=== PATIENT | male | born 1955 | race Caucasian/White ===

== ENCOUNTER → 2017-08-05 | Outpatient (REF) | payer BC | LOC: M SFHCLERA 18:21 | DX: J02.9 Acute pharyngitis, unspecified (principal) ==

== ENCOUNTER → 2017-08-05 | Outpatient (CLI) | payer BC | LOC: M LRY 17:58 | DX: R05 Cough (principal) ==

== ENCOUNTER → 2021-06-11 | Outpatient (CLI) | payer BC, MEDICARE ==
[~2021-06-11] MED LIST: AZELASTINE HCL; CYMB1CAP5 OR; FLOM0.4C39 OR; HYDR-3713 PO; LISI-898 PO; LISI5TAB OR; PENNSAID DROPS TOP; TADA5TAB PO; TAMS1CAP17 PO; VICO5TAB PO; VOLT1GEL EX
[2021-06-11 14:40] LABS: BLOOD UREA NITROGEN 15 MG/DL (7-18); CARBON DIOXIDE LEVEL 27 MEQ/L (21-32); CHLORIDE LEVEL 107 MEQ/L (98-107); CREATININE FOR GFR 0.84 MG/DL (0.70-1.30); GLOMERULAR FILTRATION RATE > 60.0 (>49); GLUCOSE, FASTING 82 MG/DL (70-100); POTASSIUM SERUM 4.2 MEQ/L (3.5-5.1); SODIUM LEVEL 139 MEQ/L (136-145)
--- NOTE | 2021-06-12 19:36 | ECGEPIP ---
[facility] Test Date: 2021-06-11 Pat Name: DANK CASTILLO Department: Room: - Gender: Male Splitter Head: TADEO : 1955 Requested By: Alex Cruz Order Number: [id number] Reading MD: Gold Hernandez Measurements Intervals [place] Rate: 70 P: 49 TX: 136 QRS: -28 QRSD: 92 T: 30 QT: 364 QTc: 393 Interpretive Statements Normal sinus rhythm with sinus arrhythmia Inferior infarct , age undetermined, cannot r/o No prior Electronically Signed on 06-12-2021 19:36:07 EST by Gold Hernandez
== END ==
LOC: M LAB 12:52
PROVIDERS: ATTEND Anesthesiology
DX: Z01.818 Encounter for other preprocedural examination (principal); R03.0 Elevated blood-pressure reading, without diagnosis of hypertension

== ENCOUNTER → 2021-06-12 | Outpatient (CLI) | payer BC | LOC: M LABSMTC 10:49 | PROVIDERS: ATTEND Anesthesiology | DX: Z01.812 Encounter for preprocedural laboratory examination (principal); Z20.822 Contact with and (suspected) exposure to COVID-19 ==

== ENCOUNTER 2021-06-17 09:36 | Day surgery (SDC) | payer BC, MEDICARE ==
[~2021-06-17] VITALS: Ht 175.3 cm; Wt 93.8 kg
[~2021-06-17 09:36] MED LIST changes: -LISI-898 PO; +LISI5TAB11 PO; +LR 1,000 ML IV ONE; +ceFAZolin SOD 2 GM in IV 1 EA IV ONE
[2021-06-17] MEDS ORDERED: LIDOCAINE 2% 100MG/5ML SDV (FOR ANES.) As Ordered ONE (09:57)
[2021-06-17] MEDS ORDERED: ONDANSETRON 4MG/2ML VIAL As Ordered ONE (09:57)
[2021-06-17] MEDS ORDERED: MIDAZOLAM INJ 2MG/2ML VIAL (J2250 PER 1MG) As Ordered ONE (09:57)
[2021-06-17] MEDS ORDERED: dexameTHASONE 4 MG/ML 1ML VIAL (J1100 PER 1MG) As Ordered ONE (09:57)
[2021-06-17] MEDS ORDERED: fentaNYL 250 MCG/5 ML INJECTION As Ordered ONE (09:57)
[2021-06-17] MEDS ORDERED: propofoL 200 MG/20 ML VIAL As Ordered ONE (09:57)
[2021-06-17] MEDS ORDERED: KETOROLAC 60MG 2ML VIAL As Ordered ONE (09:57)
[2021-06-17] MEDS ORDERED: ROCURONIUM BROMIDE 50 MG/5 ML VIAL As Ordered ONE ×2 (09:58→11:22)
[2021-06-17] MEDS ORDERED: BUPIVACAINE/EPIN 0.25% 30 ML VIAL As Ordered ONE (10:40)
[2021-06-17] MEDS ORDERED: ACETAMINOPHEN 1000MG 100ML IV BTL (OFIRMEV) (J0131 PER 10MG) As Ordered ONE (11:14)
[2021-06-17] MEDS ORDERED: ePHEDrine SULFATE 25 MG/5 ML(5MG/ML) SYRINGE As Ordered ONE (11:17)
[2021-06-17] MEDS ORDERED: SUGAMMADEX SODIUM 500 MG/5 ML VIAL (BRIDION) As Ordered ONE (11:22)
[2021-06-17] MEDS ORDERED: LABETALOL 100MG/20ML VIAL As Ordered ONE (11:38)
[2021-06-17] MEDS ORDERED: fentaNYL 100 MCG/2 ML INJECTION IV PRN (13:10)
[2021-06-17] MEDS ORDERED: PERCOCET 5MG/325MG TAB PO PRN (13:10)
[2021-06-17] MEDS ORDERED: NS 1,000 ML IV SCH (13:10)
[2021-06-17] MEDS ORDERED: NORCO, ANEXSIA 5/325MG TABLET (HYDROcodone/ACETAMINOPHEN) PO PRN ×2 (13:10)
[2021-06-17] MEDS ORDERED: METOCLOPRAMIDE INJ 10MG/2ML VIAL (J2765 PER 1) IV PRN (13:10)
[2021-06-17] MEDS ORDERED: ONDANSETRON 4MG/2ML VIAL IV PRN (13:10)
[2021-06-17] MEDS ORDERED: LR 1,000 ML IV SCH (13:10)
[2021-06-17 14:15] VITALS: BP 149/72
== END 2021-06-17 14:20 | disposition home or self-care (01) ==
LOC: M SDC 09:36
PROVIDERS: ATTEND Surgery
DX: K50.90 Crohn's disease, unspecified, without complications (principal); I10 Essential (primary) hypertension; Z79.899 Other long term (current) drug therapy
CPT/HCPCS: 49650; C1781; J0131; J0690; J1100; J2250; J2405; J3010; S2900

== ENCOUNTER 2022-04-03 20:11 | Inpatient (IN) | payer BC, MEDICARE ==
[~2022-04-03] VITALS: Ht 175.3 cm; Wt 98.7 kg
[~2022-04-03 20:11] MED LIST changes: -LR 1,000 ML IV ONE; -ceFAZolin SOD 2 GM in IV 1 EA IV ONE
[2022-04-03] MEDS ORDERED: ONDANSETRON 4MG 2ML VIAL IV ONE (21:05)
[2022-04-03] MEDS ORDERED: MORPHINE 4 MG/ML 1ML VIAL/SYRINGE IV ONE (21:05)
[2022-04-03] MEDS ORDERED: ISOVUE-370 76% 100ML VIAL As Ordered ONE (21:38)
[2022-04-03 21:39] LABS: BASO % 0.2 % (0.0-1.0); EOS % 0.4 % (0.0-3.0); HEMATOCRIT 46.5 % (42.0-52.0); HEMOGLOBIN 15.6 g/dl (13.5-17.5); LYMPH # 0.9 10^3/uL (1.5-5.0); LYMPH % 17.8 % (24.0-44.0); MEAN CORPUSCULAR HEMOGLOBIN 31.8 pg (27.0-33.0); MEAN CORPUSCULAR HGB CONC 33.5 g/dl (32.0-36.5); MEAN CORPUSCULAR VOLUME 94.7 fl (80.0-96.0); MONO # 0.2 10^3/uL (0.0-0.8); MONO % 3.4 % (2.0-8.0); NEUTROPHILS # 3.9 10^3/uL (1.5-8.5); PLATELET COUNT, AUTOMATED 266 10^3/uL (150-450); RED BLOOD COUNT 4.91 10^6/uL (4.30-6.10)
[2022-04-03 21:55] LABS: INR 0.91; PROTHROMBIN TIME 12.4 SECONDS (12.5-14.5)
[2022-04-03 21:56] LABS: ALBUMIN 4.3 GM/DL (3.2-5.2); BILIRUBIN,DIRECT 0.1 MG/DL (0.0-0.2); BILIRUBIN,TOTAL 0.4 MG/DL (0.2-1.0); TOTAL PROTEIN 7.4 GM/DL (6.4-8.2)
[2022-04-03] MEDS ORDERED: NS 2,730 ML in IV 1 EA IV ONE (22:05)
[2022-04-03] MEDS ORDERED: HYDROMORPHONE HCL 0.5 MG/ 0.5 ML SYRINGE (J1170 PER 1) IV ONE (22:10)
[2022-04-03] MEDS ORDERED: HYDR-4571 PO (22:13)
[2022-04-03] MEDS ORDERED: HOME MED LIST COMPLETE! XX SCH (22:15)
[2022-04-03] MEDS ORDERED: PIPERACILLIN/TAZOBACTAM SOD 3.375 GM in D5W MINI-BAG PLUS 50 ML IV ONE (22:25)
[2022-04-03 23:06] LABS: RSV AMPLIFICATION NEGATIVE (NEGATIVE)
[2022-04-04] VITALS (13 sets, daily range): BP systolic 113–131; BP diastolic 68–76; O2SAT 90–95
[2022-04-04] MEDS ORDERED: BUPIVACAINE LIPOSOME/PF 1.3% 20ML VIAL (13.3MG/ML)(EXPAREL) As Ordered ONE (01:19)
[2022-04-04] MEDS ORDERED: BUPIVACAINE HCL 0.25% 10ML VIAL As Ordered ONE (01:19)
[2022-04-04] MEDS ORDERED: propofoL 200 MG/20 ML VIAL As Ordered ONE (01:32)
[2022-04-04] MEDS ORDERED: SUCCINYLCHOLINE 100 MG/5 ML SYRINGE (J0330) As Ordered ONE (01:32)
[2022-04-04] MEDS ORDERED: ONDANSETRON 4MG 2ML VIAL As Ordered ONE (01:32)
[2022-04-04] MEDS ORDERED: fentaNYL 100 MCG/2 ML INJECTION As Ordered ONE (01:32)
[2022-04-04] MEDS ORDERED: LIDOCAINE 2% 100MG/5ML SDV (FOR ANES.) As Ordered ONE (01:32)
[2022-04-04] MEDS ORDERED: dexameTHASONE 4 MG/ML 1ML VIAL (J1100 PER 1MG) As Ordered ONE (01:32)
[2022-04-04] MEDS ORDERED: ROCURONIUM BROMIDE 50 MG/5 ML VIAL As Ordered ONE (01:32)
[2022-04-04] MEDS ORDERED: HYDROmorphone HCL 2MG/ML 1ML VIAL As Ordered ONE (01:32)
[2022-04-04] MEDS ORDERED: MIDAZOLAM INJ 2MG/2ML VIAL (J2250 PER 1MG) As Ordered ONE (01:32)
[2022-04-04] MEDS ORDERED: LABETALOL 100MG/20ML VIAL As Ordered ONE (01:32)
[2022-04-04] MEDS ORDERED: LIDOCAINE 2% JELLY 5ML TUBE As Ordered ONE (01:32)
[2022-04-04] MEDS ORDERED: ACETAMINOPHEN 1000MG 100ML IV BTL (OFIRMEV) (J0131 PER 10MG) As Ordered ONE (01:32)
[2022-04-04] MEDS ORDERED: SUGAMMADEX SODIUM 500 MG/5 ML VIAL (BRIDION) As Ordered ONE (01:32)
[2022-04-04] MEDS ORDERED: HYDROMORPHONE HCL 0.5 MG/ 0.5 ML SYRINGE (J1170 PER 1) IV PRN (01:35)
[2022-04-04] MEDS ORDERED: MORPHINE 2 MG/ML 1ML VIAL IV PRN (01:35)
[2022-04-04] MEDS ORDERED: oxyCODONE 5MG TAB PO PRN (01:35)
[2022-04-04] MEDS ORDERED: LR 1,000 ML IV SCH (01:35)
[2022-04-04] MEDS ORDERED: IPRATROPIUM 0.5MG/ALBUTEROL 2.5MG INH SOL UD 3ML (DUONEB) NEB PRN (01:35)
[2022-04-04] MEDS ORDERED: MORPHINE 4 MG/ML 1ML VIAL/SYRINGE IV PRN (01:35)
[2022-04-04] MEDS ORDERED: ONDANSETRON 4MG 2ML VIAL IV PRN ×2 (01:35)
[2022-04-04] MEDS ORDERED: fentaNYL 100 MCG/2 ML INJECTION IV PRN (01:35)
[2022-04-04] MEDS ORDERED: KETOROLAC 60MG 2ML VIAL As Ordered ONE (01:53)
[2022-04-04] MEDS: IPRATROPIUM 0.5MG/ALBUTEROL 2.5MG INH SOL UD 3ML (DUONEB) NEB SCH ×4 (02:00→20:00)
[2022-04-04] MEDS ORDERED: KETOROLAC 30 MG/ML 1ML VIAL IV SCH (02:00)
[2022-04-04] MEDS: NS 1,000 ML IV SCH ×4 (03:36→23:39)
[2022-04-04] MEDS: PIPERACILLIN/TAZOBACTAM SOD 3.375 GM in D5W MINI-BAG PLUS 50 ML IV SCH ×4 (04:06→22:08)
[2022-04-04] MEDS: PANTOPRAZOLE 40MG VIAL IV SCH (09:35)
[2022-04-04] MEDS: ALVIMOPAN 12 MG CAPSULE (ENTEREG) PO SCH ×2 (09:35→20:18)
[2022-04-04] MEDS: KETOROLAC 30 MG/ML 1ML VIAL IV SCH ×3 (09:35→20:21)
[2022-04-04] MEDS: TAMSULOSIN 0.4 MG CAP PO SCH (20:17)
[2022-04-04] MEDS: lisinopriL 5 MG TAB PO SCH (20:18)
[2022-04-05] MEDS: KETOROLAC 30 MG/ML 1ML VIAL IV SCH ×4 (01:29→20:16)
[2022-04-05] MEDS: IPRATROPIUM 0.5MG/ALBUTEROL 2.5MG INH SOL UD 3ML (DUONEB) NEB SCH ×4 (01:35→20:08)
[2022-04-05] MEDS: PIPERACILLIN/TAZOBACTAM SOD 3.375 GM in D5W MINI-BAG PLUS 50 ML IV SCH ×4 (04:03→23:13)
[2022-04-05 04:20] VITALS: BP 123/69
[2022-04-05 05:50] LABS: HEMATOCRIT 35.7 % (42.0-52.0); MEAN CORPUSCULAR HEMOGLOBIN 31.2 pg (27.0-33.0); MEAN CORPUSCULAR HGB CONC 32.8 g/dl (32.0-36.5); MEAN CORPUSCULAR VOLUME 95.2 fl (80.0-96.0); PLATELET COUNT, AUTOMATED 146 10^3/uL (150-450); RED BLOOD COUNT 3.75 10^6/uL (4.30-6.10); WHITE BLOOD COUNT 8.9 10^3/uL (4.0-10.0)
[2022-04-05 05:51] LABS: HEMOGLOBIN 11.7 g/dl (13.5-17.5)
[2022-04-05 06:26] LABS: BLOOD UREA NITROGEN 15 MG/DL (7-18); CALCIUM LEVEL 7.7 MG/DL (8.8-10.2); CARBON DIOXIDE LEVEL 25 MEQ/L (21-32); CHLORIDE LEVEL 110 MEQ/L (98-107); CREATININE FOR GFR 0.89 MG/DL (0.70-1.30); GLOMERULAR FILTRATION RATE > 60.0 (>49); GLUCOSE, FASTING 121 MG/DL (70-100); SODIUM LEVEL 140 MEQ/L (136-145)
[2022-04-05] MEDS: PANTOPRAZOLE 40MG VIAL IV SCH (08:26)
[2022-04-05] MEDS: ALVIMOPAN 12 MG CAPSULE (ENTEREG) PO SCH ×2 (08:27→20:16)
[2022-04-05] MEDS: NS 1,000 ML IV SCH ×2 (08:28→17:05)
[2022-04-05] MEDS ORDERED: FLUBLOK(EGG FREE)(QUAD)INFLUENZA VACC 0.5ML SYRINGE 18YRS & OLDER IM.IMMUN ONE (09:00)
[2022-04-05 10:00] VITALS: BP 130/79
[2022-04-05] MEDS: ENOXAPARIN 40MG/0.4ML SYRINGE (J1650 PER 10MG) SC SCH (12:03)
[2022-04-05 14:00] VITALS: BP 152/87
[2022-04-05] MEDS ORDERED: ACETAMINOPHEN TAB 650MG DOSE (2X325MG) PO PRN (15:50)
[2022-04-05 16:00] VITALS: BP 140/67
[2022-04-05 20:00] VITALS: BP 132/75
[2022-04-05] MEDS: lisinopriL 5 MG TAB PO SCH (20:18)
[2022-04-05] MEDS: TAMSULOSIN 0.4 MG CAP PO SCH (20:19)
[2022-04-06] MEDS: IPRATROPIUM 0.5MG/ALBUTEROL 2.5MG INH SOL UD 3ML (DUONEB) NEB SCH ×4 (02:00→19:22)
[2022-04-06] MEDS: NS 1,000 ML IV SCH ×3 (02:08→18:16)
[2022-04-06] MEDS: KETOROLAC 30 MG/ML 1ML VIAL IV SCH ×4 (02:08→20:57)
[2022-04-06] MEDS: PIPERACILLIN/TAZOBACTAM SOD 3.375 GM in D5W MINI-BAG PLUS 50 ML IV SCH ×4 (05:16→22:45)
[2022-04-06 06:00] VITALS: BP 130/75
[2022-04-06 06:04] LABS: HEMATOCRIT 32.8 % (42.0-52.0); HEMOGLOBIN 10.8 g/dl (13.5-17.5); MEAN CORPUSCULAR HEMOGLOBIN 31.6 pg (27.0-33.0); MEAN CORPUSCULAR HGB CONC 32.9 g/dl (32.0-36.5); MEAN CORPUSCULAR VOLUME 95.9 fl (80.0-96.0); PLATELET COUNT, AUTOMATED 141 10^3/uL (150-450); RED BLOOD COUNT 3.42 10^6/uL (4.30-6.10); WHITE BLOOD COUNT 8.2 10^3/uL (4.0-10.0)
[2022-04-06 06:31] LABS: BLOOD UREA NITROGEN 9 MG/DL (7-18); CALCIUM LEVEL 7.8 MG/DL (8.8-10.2); CARBON DIOXIDE LEVEL 24 MEQ/L (21-32); CHLORIDE LEVEL 114 MEQ/L (98-107); GLOMERULAR FILTRATION RATE > 60.0 (>49); GLUCOSE, FASTING 108 MG/DL (70-100); POTASSIUM SERUM 3.9 MEQ/L (3.5-5.1); SODIUM LEVEL 143 MEQ/L (136-145)
[2022-04-06] MEDS: ALVIMOPAN 12 MG CAPSULE (ENTEREG) PO SCH ×2 (09:44→20:56)
[2022-04-06] MEDS: ENOXAPARIN 40MG/0.4ML SYRINGE (J1650 PER 10MG) SC SCH (09:45)
[2022-04-06] MEDS: PANTOPRAZOLE 40MG VIAL IV SCH (09:45)
[2022-04-06 10:15] VITALS: BP 148/78
[2022-04-06] MEDS ORDERED: PERCOCET 5MG/325MG TAB PO PRN ×2 (13:45)
[2022-04-06 14:00] VITALS: BP 152/80
[2022-04-06] MEDS: TAMSULOSIN 0.4 MG CAP PO SCH (20:56)
[2022-04-06] MEDS: lisinopriL 5 MG TAB PO SCH (20:56)
[2022-04-06 21:10] VITALS: BP 167/95
[2022-04-06 22:47] VITALS: BP 154/85
[2022-04-07] VITALS (7 sets, daily range): BP systolic 169–179; BP diastolic 90–98
[2022-04-07] MEDS: NS 1,000 ML IV SCH (01:25)
[2022-04-07] MEDS: IPRATROPIUM 0.5MG/ALBUTEROL 2.5MG INH SOL UD 3ML (DUONEB) NEB SCH ×4 (01:54→19:54)
[2022-04-07] MEDS: KETOROLAC 30 MG/ML 1ML VIAL IV SCH ×4 (02:45→21:07)
[2022-04-07] MEDS: PIPERACILLIN/TAZOBACTAM SOD 3.375 GM in D5W MINI-BAG PLUS 50 ML IV SCH ×4 (04:12→23:22)
[2022-04-07 06:02] LABS: HEMATOCRIT 32.3 % (42.0-52.0); HEMOGLOBIN 10.6 g/dl (13.5-17.5); MEAN CORPUSCULAR HGB CONC 32.8 g/dl (32.0-36.5); MEAN CORPUSCULAR VOLUME 94.4 fl (80.0-96.0); PLATELET COUNT, AUTOMATED 164 10^3/uL (150-450); RED BLOOD COUNT 3.42 10^6/uL (4.30-6.10); WHITE BLOOD COUNT 6.3 10^3/uL (4.0-10.0)
[2022-04-07 06:53] LABS: BLOOD UREA NITROGEN 6 MG/DL (7-18); CALCIUM LEVEL 7.6 MG/DL (8.8-10.2); CARBON DIOXIDE LEVEL 24 MEQ/L (21-32); CHLORIDE LEVEL 115 MEQ/L (98-107); CREATININE FOR GFR 0.72 MG/DL (0.70-1.30); GLOMERULAR FILTRATION RATE > 60.0 (>49); GLUCOSE, FASTING 113 MG/DL (70-100); POTASSIUM SERUM 3.6 MEQ/L (3.5-5.1); SODIUM LEVEL 144 MEQ/L (136-145)
[2022-04-07] MEDS: ALVIMOPAN 12 MG CAPSULE (ENTEREG) PO SCH (08:36)
[2022-04-07] MEDS: PANTOPRAZOLE 40MG VIAL IV SCH (08:37)
[2022-04-07] MEDS: ENOXAPARIN 40MG/0.4ML SYRINGE (J1650 PER 10MG) SC SCH (08:37)
[2022-04-07] MEDS: TAMSULOSIN 0.4 MG CAP PO SCH (21:07)
[2022-04-07] MEDS: lisinopriL 5 MG TAB PO SCH (21:09)
[2022-04-08] VITALS: BP 170/98
[2022-04-08] MEDS: KETOROLAC 30 MG/ML 1ML VIAL IV SCH ×2 (02:00→08:43)
[2022-04-08] MEDS: IPRATROPIUM 0.5MG/ALBUTEROL 2.5MG INH SOL UD 3ML (DUONEB) NEB SCH ×2 (02:00→08:00)
[2022-04-08 04:00] VITALS: BP 169/94
[2022-04-08] MEDS: PIPERACILLIN/TAZOBACTAM SOD 3.375 GM in D5W MINI-BAG PLUS 50 ML IV SCH (04:59)
[2022-04-08 06:19] LABS: HEMATOCRIT 31.6 % (42.0-52.0); HEMOGLOBIN 10.4 g/dl (13.5-17.5); MEAN CORPUSCULAR HEMOGLOBIN 31.1 pg (27.0-33.0); MEAN CORPUSCULAR HGB CONC 32.9 g/dl (32.0-36.5); MEAN CORPUSCULAR VOLUME 94.6 fl (80.0-96.0); PLATELET COUNT, AUTOMATED 168 10^3/uL (150-450); RED BLOOD COUNT 3.34 10^6/uL (4.30-6.10)
[2022-04-08 06:43] LABS: BLOOD UREA NITROGEN 10 MG/DL (7-18); CALCIUM LEVEL 7.7 MG/DL (8.8-10.2); CARBON DIOXIDE LEVEL 25 MEQ/L (21-32); CHLORIDE LEVEL 112 MEQ/L (98-107); CREATININE FOR GFR 0.62 MG/DL (0.70-1.30); GLOMERULAR FILTRATION RATE > 60.0 (>49); GLUCOSE, FASTING 108 MG/DL (70-100); POTASSIUM SERUM 3.5 MEQ/L (3.5-5.1); SODIUM LEVEL 145 MEQ/L (136-145)
[2022-04-08] MEDS ORDERED: CIPR-249 PO (08:29)
[2022-04-08] MEDS ORDERED: METR-265 PO (08:29)
[2022-04-08] MEDS: PANTOPRAZOLE 40MG VIAL IV SCH (08:43)
[2022-04-08] MEDS: ENOXAPARIN 40MG/0.4ML SYRINGE (J1650 PER 10MG) SC SCH (08:44)
== END 2022-04-08 10:39 | disposition home or self-care (01) | DRG 329 ==
LOC: M ED 20:11 → M SDC 23:00 → M ED INP 04-04 01:32 → M MSPAV 04-04 02:38
PROVIDERS: ADMIT Surgery; ATTEND Surgery
PROC: 0DBL0ZZ Excision of Transverse Colon, Open Approach (ICD-10-PCS; principal; 2022-04-04)
DX: K91.89 Other postprocedural complications and disorders of digestive system (principal); K63.1 Perforation of intestine (nontraumatic); I10 Essential (primary) hypertension; N40.0 Benign prostatic hyperplasia without lower urinary tract symptoms; Z88.8 Allergy status to other drugs, medicaments and biological substances; Z79.899 Other long term (current) drug therapy

== ENCOUNTER → 2022-07-18 | Outpatient (CLI) | payer MEDICARE ==
[~2022-07-18] MED LIST changes: +CIPR-249 PO; +HYDR-4571 PO; +METR-265 PO
[2022-07-18 13:15] LABS: BASO % 0.6 % (0.0-1.0); EOS # 0.1 10^3/uL (0.0-0.5); EOS % 1.1 % (0.0-3.0); HEMATOCRIT 41.1 % (42.0-52.0); HEMOGLOBIN 13.2 g/dl (13.5-17.5); LYMPH # 1.3 10^3/uL (1.5-5.0); LYMPH % 24.4 % (24.0-44.0); MEAN CORPUSCULAR HEMOGLOBIN 30.1 pg (27.0-33.0); MEAN CORPUSCULAR HGB CONC 32.1 g/dl (32.0-36.5); MEAN CORPUSCULAR VOLUME 93.6 fl (80.0-96.0); MONO # 0.3 10^3/uL (0.0-0.8); MONO % 6.1 % (2.0-8.0); NEUTROPHILS # 3.7 10^3/uL (1.5-8.5); NEUTROPHILS % 67.4 % (36.0-66.0); PLATELET COUNT, AUTOMATED 228 10^3/uL (150-450); RED BLOOD COUNT 4.39 10^6/uL (4.30-6.10); WHITE BLOOD COUNT 5.4 10^3/uL (4.0-10.0)
[2022-07-18 13:42] LABS: PROSTATIC SPECIFIC AG MONITOR 2.32 NG/ML (< 4.00)
[2022-07-18 13:45] LABS: ALBUMIN 4.1 G/DL (3.2-5.2); ALKALINE PHOSPHATASE 69 U/L (46-116); ALT/SGPT 14 U/L (7.0-40); AST/SGOT 18 U/L (<34); BILIRUBIN,TOTAL 0.5 MG/DL (0.3-1.2); BLOOD UREA NITROGEN 17 MG/DL (9-23); CALCIUM LEVEL 8.9 MG/DL (8.3-10.6); CARBON DIOXIDE LEVEL 26 MMOL/L (20-31); CHLORIDE LEVEL 106 MMOL/L (98-107); CHOLESTEROL LEVEL 172 MG/DL (<200); CHOLESTEROL RISK RATIO 2.82 (<5); CREATININE FOR GFR 0.77 MG/DL (0.70-1.30); GLOMERULAR FILTRATION RATE > 60.0 (>49); GLUCOSE, FASTING 92 MG/DL (74-106); HDL CHOLESTEROL 60.9 MG/DL (>40); LDL CHOLESTEROL 100.1 MG/DL (<100); NON-HDL-C 111 MG/DL; SODIUM LEVEL 139 MMOL/L (136-145); TOTAL PROTEIN 6.8 G/DL (5.7-8.2); TRIGLYCERIDES LEVEL 55 MG/DL (<150)
[2022-07-18 13:46] LABS: THYROID STIMULATING HORMONE 0.756 uIU/ML (0.55-4.78)
== END ==
LOC: M WUC 09:33
PROVIDERS: ATTEND Physician Assistant
DX: I10 Essential (primary) hypertension (principal); E78.5 Hyperlipidemia, unspecified; N40.0 Benign prostatic hyperplasia without lower urinary tract symptoms